=== PATIENT | female | born 1965 | race Caucasian/White ===

== ENCOUNTER 2018-01-23 08:19 | Emergency (ER) | payer OTHER ==
[2018-01-23] MEDS: KETOROLAC 30 MG INJ IV (09:11)
[2018-01-23] MEDS: SOD CHLORIDE 0.9% 1,000 ML IV (09:11)
[2018-01-23] MEDS: ACETAMINOPHEN 325 MG TAB PO (09:12)
[2018-01-23 09:29] LABS: ADD MAN DIFF? NO
[2018-01-23 09:33] LABS: BASOPHILS % 0.2 % (0.0-2.0); EOSINOPHILS % 0.5 % (0.0-7.0); HEMATOCRIT 39.8 % (37.0-47.0); HEMOGLOBIN 13.3 g/dl (12.0-16.0); LYMPHOCYTES # 0.8 10^3/ul (0.8-2.9); LYMPHOCYTES % 18.5 % (15.0-51.0); MEAN CORPUSCULAR HEMOGLOBIN 29.4 pg (29.0-33.0); MEAN CORPUSCULAR HGB CONC 33.4 g/dl (32.0-37.0); MEAN CORPUSCULAR VOLUME 88.1 fl (82.0-101.0); MEAN PLATELET VOLUME 10.1 fl (7.4-10.4); MONOCYTE # 0.6 10^3/ul (0.3-0.9); MONOCYTES % 14.3 % (0.0-11.0); NEUTROPHIL # 2.7 10^3/ul (1.6-7.5); NEUTROPHILS % 66.3 % (39.0-77.0); PLATELET COUNT 166 10^3/UL (140-415); RED BLOOD COUNT 4.52 10^6/ul (4.20-5.40); RED CELL DISTRIBUTION WIDTH 12.7 % (11.5-14.5)
[2018-01-23 09:33] LABS: WHITE BLOOD COUNT 4.1 10^3/ul (4.8-10.8)
[2018-01-23 09:38] LABS: ADD UMIC YES; UR ASCORBIC ACID NEGATIVE (NEGATIVE); UR BILIRUBIN (Dip) NEGATIVE (NEGATIVE); UR BLOOD (Dip) 2+ mg/dL (NEGATIVE); UR CLARITY CLEAR (CLEAR); UR COLOR YELLOW (YELLOW); UR GLUCOSE (Dip) NEGATIVE (NEGATIVE); UR KETONES (Dip) NEGATIVE (NEGATIVE); UR LEUKOCYTE ESTERASE (Dip) NEGATIVE Leu/ul (NEGATIVE); UR NITRITE (Dip) NEGATIVE (NEGATIVE); UR RBC 12 /HPF (0-5); UR SPECIFIC GRAVITY (Dip) 1.018 (1.003-1.030); UR TOTAL PROTEIN (Dip) NEGATIVE (NEGATIVE); UR UROBILINOGEN (Dip) NEGATIVE (NEGATIVE); UR WBC 0 /HPF (0-5)
[2018-01-23 09:59] LABS: ANION GAP 17 (8-16); BLOOD UREA NITROGEN 13 mg/dl (7-20); CALCIUM 8.6 mg/dl (8.4-10.2); CARBON DIOXIDE 26 mmol/L (21-31); CHLORIDE 103 mmol/L (97-110); CREATININE 0.78 mg/dl (0.44-1.00); GLUCOSE 100 mg/dl (70-220); POTASSIUM 3.7 mmol/L (3.5-5.1); SODIUM 142 mmol/L (135-144)
[2018-01-23 10:01] LABS: INR 0.97
[2018-01-23 10:16] LABS: TROPONIN-I < 0.012 ng/ml (0.00-0.12)
[2018-01-23 11:14] LABS: MONOTEST Negative (NEG)
== END 2018-01-23 11:42 | disposition home or self-care (01) ==
LOC: FTE 08:19
DX: J10.1 Influenza due to other identified influenza virus with other respiratory manifestations (principal); E03.9 Hypothyroidism, unspecified; R07.9 Chest pain, unspecified
CPT/HCPCS: 36415; 71045; 80048; 81001; 84484; 85025; 85610; 85730; 86308; 87400; 93005; 96374; 99285-25

== ENCOUNTER 2019-04-26 23:21 | Emergency (ER) | payer OTHER ==
[2019-04-27] MEDS: ACETAMINOPHEN 500 MG TAB PO (01:43)
[2019-04-27] MEDS: AZITHROMYCIN 500 MG TAB PO (04:10)
== END 2019-04-27 04:13 | disposition home or self-care (01) ==
LOC: FTE 23:21
DX: J20.8 Acute bronchitis due to other specified organisms (principal)
CPT/HCPCS: 71046; 99283-25

== ENCOUNTER 2019-06-17 08:21 | Emergency (ER) | payer OTHER ==
[2019-06-17] MEDS: SOD CHLORIDE 0.9% 500 ML IV (09:49)
[2019-06-17] MEDS: METOCLOPRAMIDE 10 MG INJ IV (09:49)
[2019-06-17] MEDS: DIPHENHYDRAMINE 50 MG INJ IV (09:49)
[2019-06-17] MEDS: KETOROLAC 30 MG INJ IV (09:50)
== END 2019-06-17 11:58 | disposition home or self-care (01) ==
LOC: FTE 08:21
DX: G43.019 Migraine without aura, intractable, without status migrainosus (principal); M62.838 Other muscle spasm
CPT/HCPCS: 96361; 96374; 96375; 99284-25